=== PATIENT | female | born 1935 | race Two or more races ===

== ENCOUNTER 2021-06-19 11:09 | Outpatient (CLI) | payer OTHER ==
[~2021-06-19 11:09] MED LIST: CELEBREX100 MG; METOPROLOL SUCC50 MG; NEURONTIN300 MG; NORFLEX100 MG; PERCOCET 10-3251 TAB; SIMVASTATIN20 MG; SYNTHROID50 MCG; TRICOR145 MG
== END 2021-06-19 11:13 | disposition home or self-care (01) ==
LOC: RAD 11:09
PROVIDERS: ATTEND Orthopaedic Surgery
DX: M25.561 Pain in right knee (principal); M25.652 Stiffness of left hip, not elsewhere classified; M25.551 Pain in right hip; M25.552 Pain in left hip

== ENCOUNTER 2023-12-14 08:05 | Outpatient (CLI) | payer OTHER | END 2023-12-14 08:09 | disposition home or self-care (01) | LOC: RX STUDY 08:05 | PROVIDERS: ATTEND Internal Medicine Gastroenterology | DX: R13.10 Dysphagia, unspecified (principal) ==